=== PATIENT | female | born 1955 | race African-American/Black ===

== ENCOUNTER 2018-03-20 01:57 | Emergency (ER) | payer OTHER ==
[~2018-03-20] VITALS: Ht 160 cm; Wt 68.0 kg
[~2018-03-20 01:57] MED LIST: B COMPLEX1 EACH PO; B-121000 MC2 PO; COREG25 MG PO; COZAAR 25 MG TA25 M1 PO; MULTIVITAMINS PO; NORCO 5-325 TA1 EACH PO; VALIUM2 MG PO
[2018-03-20] MEDS ORDERED: FLAX SEED OIL1000 MG PO (02:19)
[2018-03-20 02:27] LABS: URINE BLOOD 3+ (Negative); URINE CLARITY SL CLOUDY; URINE COLOR BROWN; URINE GLUCOSE-RANDOM* NEGATIVE (Negative); URINE KETONES TRACE (Negative); URINE LEUKOCYTES-REFLEX NEGATIVE (Negative); URINE NITRITE-REFLEX NEGATIVE (Negative); URINE PROTEIN (DIPSTICK) 2+ (Negative); URINE SPECIFIC GRAVITY >= 1.030 (1.005-1.035); URINE UROBILINOGEN 0.2 E.U./dl (0.2-1.0)
[2018-03-20 02:31] LABS: ICTOTEST (BILI CONFIRMATORY) Negative (Negative); URINE BILIRUBIN NEGATIVE (Negative)
[2018-03-20 02:37] LABS: ABSOLUTE NEUTROPHILS 4.8 thou/uL (1.4-8.2); BASOPHILS 0.6 % (0.0-2.0); EOSINOPHILS 1.8 % (0.0-3.0); HEMATOCRIT 41.5 % (37.0-47.0); HEMOGLOBIN 13.7 gm/dL (12.0-15.0); LYMPHOCYTES 30.9 % (24.0-44.0); MCH 27.9 pg (26.0-34.0); MCV 84.5 fL (80.0-100.0); PLATELET COUNT 186 thou/uL (150-400); POLYS 60.7 % (36.0-66.0); RBC 4.91 mil/uL (4.20-5.00); WBC 7.8 thou/uL (4.0-11.0)
[2018-03-20 02:45] LABS: CALCIUM 9.5 mg/dL (8.5-10.1); CREATININE 1.2 mg/dL (0.6-1.0); POTASSIUM 3.4 mmol/L (3.5-5.1)
[2018-03-20 02:47] LABS: SQUAMOUS >10 Many /LPF (0-3); URINE RBC >20 Many /HPF (0-2); URINE WBC-REFLEX 6-15 Few /HPF (0-5)
[2018-03-20 02:48] LABS: CASTS None Seen /LPF (None Seen); CRYSTALS None Seen /LPF (None Seen)
[2018-03-20 02:51] LABS: ALBUMIN 3.6 g/dL (3.4-5.0); TOTAL BILIRUBIN 0.4 mg/dL (<0.1-1.0); TOTAL PROTEIN 7.6 g/dL (6.4-8.2)
[2018-03-20] MEDS ORDERED: IBUPROFEN 600600 M1 PO (04:17)
[2018-03-20] MEDS ORDERED: TRAMADOL 50 MG50 MG PO (04:17)
[2018-03-20 05:06] VITALS: BP 141/68
== END 2018-03-20 05:00 | disposition home or self-care (01) ==
LOC: ER 01:57
PROVIDERS: Emergency Medicine
DX: N20.0 Calculus of kidney (principal); I10 Essential (primary) hypertension; Z85.3 Personal history of malignant neoplasm of breast